=== PATIENT | female | born 1980 | race Caucasian/White ===

== ENCOUNTER 2017-11-02 05:31 | Emergency (ER) | payer BC ==
[~2017-11-02] VITALS: Ht 160 cm; Wt 104.3 kg
--- NOTE | ~2017-11-02 | EKG ---
[address] [address] ELECTROCARDIOGRAM REPORT Name: FRANCINE TRACEY Room [id number] Admission: 11/02/17 Attend Phys: Discharge: 11/02/17 Date of : 84 Report #: [id number] THIS REPORT FOR: //name// [facility] ED Test Date: 2017-11-02 Test Time: 07:28:09 Pat Name: FRANCINE TRACEY Department: Room: Gender: F Sales And Service Advisor: joan : 1980 Requested By: Mazin Villa Order Number: [id number] MD: Chaparro Cantu Measurements Intervals [place] Rate: 93 P: 52 NH: 204 QRS: -16 QRSD: 81 T: 146 QT: 381 QTc: 474 Interpretive Statements Sinus rhythm Borderline prolonged NH interval LVH with secondary repolarization abnormality Compared to ECG 11/02/2017 05:54:07 Left ventricular hypertrophy now present Early repolarization now present Electronically Signed On 11-02-2017 10:38:43 PALLIATIVE MEDICINE PHYSICIAN by Chaparro Cantu [email or web address] <ELECTRONICALLY SIGNED> By: Chaparro Cantu MD 11/02/17 1038 7 7 Chaparro Cantu MD /EPI
--- NOTE | ~2017-11-02 | EKG ---
[place] [address] [facility] [employer] [address] ELECTROCARDIOGRAM REPORT Name: FRANCINE TRACEY Room #: [facility] [id number] Admission: 11/02/17 Attend Phys: Discharge: Date of : 84 Report #: [id number] THIS REPORT FOR: //name// [facility] ED Test Date: 2017-11-02 Test Time: 05:54:07 Pat Name: FRANCINE TRACEY Department: Room: Gender: F Finisher Plate: joan : 1980 Requested By: Haroon Vargas Order Number: [id number] MD: Clint Lovett Measurements Intervals [place] Rate: 77 P: 9 FL: 177 QRS: 40 QRSD: 99 T: 29 QT: 376 QTc: 426 Interpretive Statements Sinus rhythm Normal tracing Compared to ECG 01/24/2008 17:43:38 No significant change was found Electronically Signed On 11-02-2017 8:28:03 EXAMINATION PROCTOR by Clint Lovett [email or web address] <ELECTRONICALLY SIGNED> By: Clint Lovett MD, [facility] 11/02/17 0828 [id number] [id number] Clint Lovett MD, FACC /EPI
[~2017-11-02 05:31] MED LIST: ALER-CAP25 MG PO; IBUPROFEN 800800 M1 PO; NOHOMEMEDICATIONS; ZOFRAN ODT4 MG PO
[2017-11-02 06:10] LABS: ABSOLUTE NEUTROPHILS 5.3 thou/uL (1.4-8.2); BASOPHILS 0.5 % (0.0-2.0); EOSINOPHILS 1.4 % (0.0-3.0); HEMATOCRIT 39.4 % (37.0-47.0); HEMOGLOBIN 13.4 gm/dL (12.0-15.0); LYMPHOCYTES 28.2 % (24.0-44.0); MCH 28.4 pg (26.0-34.0); MCV 83.4 fL (80.0-100.0); MONOCYTES 7.1 % (1.0-8.0); PLATELET COUNT 215 thou/uL (150-400); POLYS 62.8 % (36.0-66.0); RBC 4.72 mil/uL (4.20-5.00); RDW 12.5 % (10.5-14.5); WBC 8.4 thou/uL (4.0-11.0)
[2017-11-02 06:19] LABS: CALCIUM 9.1 mg/dL (8.5-10.1); CREATININE 0.8 mg/dL (0.6-1.0); POTASSIUM 3.7 mmol/L (3.5-5.1)
[2017-11-02 06:24] LABS: ALBUMIN 3.6 g/dL (3.4-5.0); TOTAL BILIRUBIN 0.5 mg/dL (<0.1-1.0); TOTAL PROTEIN 7.3 g/dL (6.4-8.2)
[2017-11-02 06:26] LABS: MAGNESIUM 1.9 mg/dL (1.8-2.4); TROPONIN-I < 0.04 ng/mL (<0.06)
[2017-11-02 08:39] LABS: URINE BILIRUBIN NEGATIVE (Negative); URINE BLOOD NEGATIVE (Negative); URINE CLARITY CLEAR; URINE COLOR YELLOW; URINE GLUCOSE-RANDOM* NEGATIVE (Negative); URINE KETONES NEGATIVE (Negative); URINE LEUKOCYTES-REFLEX NEGATIVE (Negative); URINE NITRITE-REFLEX NEGATIVE (Negative); URINE PROTEIN (DIPSTICK) NEGATIVE (Negative); URINE SPECIFIC GRAVITY 1.025 (1.005-1.035); URINE UROBILINOGEN 0.2 E.U./dl (0.2-1.0)
[2017-11-02] MEDS ORDERED: PREDNISONE 20 M20 M1 PO (08:48)
[2017-11-02] MEDS ORDERED: ZOFRAN ODT4 MG PO (08:48)
== END 2017-11-02 09:30 | disposition home or self-care (01) ==
LOC: ER 05:31
PROVIDERS: Emergency Medicine
DX: J06.9 Acute upper respiratory infection, unspecified (principal); R11.2 Nausea with vomiting, unspecified; R55 Syncope and collapse